=== PATIENT | male | born 1955 | race Caucasian/White ===

== ENCOUNTER 2017-02-20 13:29 | Emergency (ER) | payer BC ==
[~2017-02-20] VITALS: Ht 162.6 cm; Wt 69.9 kg
--- NOTE | 2017-02-20 13:29 | NUR ---
Patient was BIBA at this time.
--- NOTE | 2017-02-20 13:32 | NUR ---
Dr. Worrell evaluating patient.
[2017-02-20 13:33] VITALS: BP 139/94
--- NOTE | 2017-02-20 13:45 | NUR ---
Patient taken to bed 06 via gurney per EMS.
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
--- NOTE | 2017-02-20 13:48 | NUR ---
WENT TO CT SCAN ACCOMPANIED BY TECH.
[2017-02-20 14:45] VITALS: BP 142/89
--- NOTE | 2017-02-20 14:45 | NUR ---
Patient discharged with v/s stable. Written and verbal after care instructions given and explained. Patient verbalized understanding. Ambulatory with steady gait. All questions addressed prior to discharge. Advised to follow up with PMD.
== END 2017-02-20 14:45 | disposition home or self-care (01) ==
LOC: MED 13:29
DX: S16.1XXA Strain of muscle, fascia and tendon at neck level, initial encounter (principal); V54.5XXA Driver of pick-up truck or van injured in collision with heavy transport vehicle or bus in traffic accident, initial encounter; Y93.89 Activity, other specified; Y92.488 Other paved roadways as the place of occurrence of the external cause; Y99.8 Other external cause status
CPT/HCPCS: 72125; 99284